=== PATIENT | male | born 1935 | race Caucasian/White ===

== ENCOUNTER 2023-07-26 07:37 | Emergency (ER) | payer OTHER, SELFPAY ==
[2023-07-26 07:51] VITALS: BP 155/81
[2023-07-26 08:27] VITALS: BP 148/68
--- NOTE | 2023-07-26 08:28 | ED.GENMED ---
History of Present Illness
General
Chief Complaint: Rectal Bleeding
Time Seen by Provider: 07/26/23 08:00
Travel History
Have you had any contact with someone who has COVID-19?: No
Do you have any symptoms of coronavirus? Fever > 100 degrees, chills, cough, shortness of breath, sore throat, loss of taste or smell, muscle aches, or headache?: No
History of Present Illness
History of Present Illness:
79-year-old male with history of A-fib on Eliquis, peripheral arterial disease on Plavix, hypertension, hyperlipidemia, and CHF presents to the emergency department for evaluation of blood on the toilet paper today. He denies seeing any blood in
the bowl. He states that he felt somewhat lightheaded this morning as well prompting, the ER. He did take his morning medications including Eliquis and Plavix. Denies any abdominal pain, chest pain, shortness of breath
Past History
Past History
ED Past Medical History: Arrthythmia (Afib), CHF, HTN, Hypercholesterolemia, Hypothyroidism and Other (Partial SBO, Ulcers)
ED Past Surgical History: Other (hernia)
Patient has exhibited threatening behavior?: No
PSI?: No
Social History
Tobacco: Former smoker
Alcohol: None
Drug: None
Personal:
Living: alone
Employment: Retired
Family History
Family History: Other (Noncontributory)
Review of Systems
Review of Systems
Allergies reviewed?: Yes
All Other Systems: ROS reviewed and negative except as documented in HPI and ROS
Phy Exam
Physical Exam
Physical Exam:
GEN: Well appearing, NAD, WDWN
Eyes: PERRLA, EOMs intact, no scleral icterus
HENT: NCAT, oral mucosa moist
Lungs: CTAB, no wheezes, rales, rhonchi, normal chest wall excursion
Cardiac: RRR, no M/R/G, no peripheral edema. Radial pulses 2+ bilat
Abdomen: S, NT, ND, NABS, no masses or hepatosplenomegaly
Rectal: No blood in the rectal vault, no anal fissures visualized, no active bleeding
Neuro: AO x 3
MSK: No gross deformity or ecchymosis.
Skin: No rashes, petechiae. Normal color, no pallor or jaundice.
Psych: Calm, cooperative, proper hygiene
Course
Orders/Labs/Results
Orders:
Orders
07/26/23 09:20
Comprehensive Metabolic Panel Urgent
07/26/23 09:26
Type+Screen Urgent
Complete Blood Count/With Diff Urgent
Abnormal Lab Results
07/26/23 07/26/23
09:20 09:26
RDW 20.1 H %
(11.5-14.5)
Absolute Monos (auto) 0.7 H 10^3/uL
(0.1-0.6)
Monocytes % 10.1 H %
(1.7-9.3)
Eosinophils % 7.9 H %
(0-6)
BUN 26 H mg/dl
(9-20)
Total Protein 9.0 H g/dl
(6.3-8.2)
Albumin 5.2 H g/dl
(3.5-5.0)
07/26/23 09:26
07/26/23 09:26
Vital Signs
Initial and Last Documented VS:
Initial Vital Signs
Temp Pulse Resp BP Pulse Ox
93.9 F L 55 20 155/81 97
07/26/23 07:51 07/26/23 07:51 07/26/23 07:51 07/26/23 07:51 07/26/23 07:51
Last Documented Vital Signs
Temp Pulse Resp BP Pulse Ox
97.7 F 56 16 158/87 96
07/26/23 11:39 07/26/23 12:00 07/26/23 12:00 07/26/23 12:00 07/26/23 11:30
MDM/Problems Addressed
MDM/Problems Addressed:
Patient's hemoglobin is normal at 16. He was observed the emergency department for approximate 4 hours at which point he had no further episodes of blood per rectum. His vital signs remained stable. Initial temperature improved dramatically with
external warming. I discussed the case with on-call for vascular surgery who agreed that Plavix should be continued despite the mild rectal bleeding given his significant peripheral arterial disease. However Eliquis will be held for 72 hours.
Patient does reside at home alone however has visiting nurses as well as family that visits him every day and sets up his medications for him. I did discuss the details of treatment with his daughter who is in agreement with the plan. Patient is
advised to return with any increased rectal bleeding. Do not see any indication at this juncture for imaging as he has no reproducible abdominal tenderness and volume of bleeding appears to be quite minor, doubt there will be any utility to CT
angiogram. I suspect the source of bleeding is most likely internal hemorrhoids, less likely diverticular bleeding given that it was not maroon and given that there was no recurrence of bleeding in the ER. Highly doubt AVM or significant vascular
bleed again given patient's stability.
*Critical Care Note
Total Time (30-74mins, 75-104mins- exclusive of procedures): Not Applicable
ED Attending Note
-
Portions of this chart may have been created with voice recognition software.� Occasional wrong word or��sound alike� substitutions may have occurred due to the inherent limitations of voice recognition software.
Discharge Plan
Departure
Patient Disposition: Home (Routine Discharge)
Date of Disposition: 07/26/23
Time of Disposition: 12:03
Patient with high blood pressure during this ER visit?: No
Discharge Problem:
Rectal bleed
Instructions: Hemorrhoids (DC)
Prescriptions:
No Action
levothyroxine 100 MCG tablet
100 mcg PO DAILY
ascorbic acid (vitamin C) [Vitamin C] 500 MG tablet
500 mg PO DAILY
multivitamin with folic acid [Tab-A-Ray] 1 TABLET tablet
1 tab PO DAILY
lisinopril 5 MG tablet
5 mg PO DAILY Qty: 90 3RF
pantoprazole 40 MG tablet,delayed release (DR/EC)
40 mg PO Q48H
cholecalciferol (vitamin D3) [Vitamin D3] 25 mcg (1,000 unit) Tablet
25 mcg PO DAILY
bumetanide 1 mg Tablet
1 mg PO DAILY Qty: 30 0RF
apixaban 5 mg Tablet
5 mg PO BID Qty: 0 0RF
atorvastatin 10 mg Tablet
10 mg PO QPM Qty: 90 0RF
clopidogrel 75 mg Tablet
75 mg PO DAILY Qty: 60 0RF
Referrals:
Dipti Travis DO [Family Provider] -
Activity Restrictions/Additional Instructions:
Do not take Eliquis for the next 3 days/6 doses, you may resume this on Friday evening
Continue your Plavix
If your bleeding worsens return to the emergency department for reevaluation
Interventions
Interventions:
*Risk Screen - Suicide Last Done: 07/26/23 09:46
*General Assessment Last Done: 07/26/23 09:46
*Neglect/Abuse Screening Last Done: 07/26/23 09:46
ED- Fall Risk Assessment Last Done: 07/26/23 09:01
*ED COVID-19 Vaccine History Last Done: 07/26/23 09:01
*Nursing Disposition Last Done: 07/26/23 12:22
FC-Hrklkg-Hxuxakqnxt Assessment Last Done: 07/26/23 09:01
ED- Cardiac Assessment Last Done: 07/26/23 09:01
ED- Pulmonary Assessment Last Done: 07/26/23 09:01
Discharge Date and Time
Discharge Date/Time: 07/26/23 12:40
[2023-07-26 09:00] VITALS: BP 138/64
[2023-07-26 09:47] VITALS: BMI 23.3
[2023-07-26 09:48] LABS: % Basophils 1.6 % (0-2); % Eosinophils 7.9 % (0-6); % Immature Granulocytes 0.3 % (0-0.5); % Lymphocytes 23.7 % (20.5-51.1); % Monocytes 10.1 % (1.7-9.3); % Neutrophils 56.4 % (42.2-75.2); Absolute Basophils 0.1 10^3/uL (0-0.2); Absolute Eosinophils 0.5 10^3/uL (0-0.7); Absolute Lymphocytes 1.6 10^3/uL (1.2-3.4); Absolute Monocytes 0.7 10^3/uL (0.1-0.6); Absolute Neutrophils 3.8 10^3/uL (1.4-6.5); Hematocrit 46.7 % (39.0-52.0); Mean Corp Hgb Conc. 34.3 g/dL (33.0-37.0); Mean Corpuscular Hgb 28.2 pg (27.0-31.0); Mean Corpuscular Volume 82.4 fL (80.0-94.0); Mean Platelet Volume 10.2 fL (7.4-10.4); Nucleated Red Blood Cells % 0 % (-); Platelet Count 251 10^3/uL (130-400); Red Blood Cell Count 5.67 10^6/uL (4.70-6.10); Red Cell Dist. Width 20.1 % (11.5-14.5); White Blood Cell Count 6.7 10^3/uL (4.8-10.8)
[2023-07-26 10:00] VITALS: BP 151/73
[2023-07-26 11:00] VITALS: BP 139/72
[2023-07-26 11:17] LABS: ALT (SGPT) 37 U/L (0-50); AST (SGOT) 42 U/L (17-59); Albumin 5.2 g/dl (3.5-5.0); Alkaline Phosphatase 103 U/L (38-126); Blood Urea Nitrogen 26 mg/dl (9-20); Calcium 9.7 mg/dl (8.4-10.2); Carbon Dioxide 28 mmol/L (22-30); Chloride 99 mmol/L (98-107); Estimated Creatinine Clearance 49 ml/min; Glucose 84 mg/dl (70-99); Potassium 4.4 mmol/L (3.5-5.1); Sodium 138 mmol/L (135-145); eGFR > 60.00
[2023-07-26 12:00] VITALS: BP 158/87
== END 2023-07-26 12:40 | disposition home or self-care (01) ==
LOC: EMR 07:37
PROVIDERS: Physician Assistant; EMERGENCY PHYSICIAN Emergency Medicine; FAMILY PHYSICIAN Student in an Organized Health Care Education/Training Program
DX: K62.5 Hemorrhage of anus and rectum (principal); I48.91 Unspecified atrial fibrillation; I73.9 Peripheral vascular disease, unspecified; E78.00 Pure hypercholesterolemia, unspecified; I11.0 Hypertensive heart disease with heart failure; I50.9 Heart failure, unspecified; E03.9 Hypothyroidism, unspecified; Z79.01 Long term (current) use of anticoagulants; Z79.02 Long term (current) use of antithrombotics/antiplatelets; Z87.891 Personal history of nicotine dependence
CPT/HCPCS: 99283; 80053; 85025; 86850; 86900; 86901

== ENCOUNTER → 2023-09-04 13:17 | Outpatient (REF) | payer OTHER, SELFPAY | LOC: WOUND 13:17 | PROVIDERS: ATTENDING PHYSICIAN Surgery; FAMILY PHYSICIAN Student in an Organized Health Care Education/Training Program | DX: I87.312 Chronic venous hypertension (idiopathic) with ulcer of left lower extremity (principal); L97.422 Non-pressure chronic ulcer of left heel and midfoot with fat layer exposed; I50.32 Chronic diastolic (congestive) heart failure; D68.69 Other thrombophilia; N18.31 Chronic kidney disease, stage 3a; E11.65 Type 2 diabetes mellitus with hyperglycemia; I73.9 Peripheral vascular disease, unspecified; D50.9 Iron deficiency anemia, unspecified; E11.42 Type 2 diabetes mellitus with diabetic polyneuropathy; E11.22 Type 2 diabetes mellitus with diabetic chronic kidney disease; I13.0 Hypertensive heart and chronic kidney disease with heart failure and stage 1 through stage 4 chronic kidney disease, or unspecified chronic kidney disease | CPT/HCPCS: 99213 ==

== ENCOUNTER → 2023-12-02 12:45 | Outpatient (REF) | payer OTHER, SELFPAY | LOC: HWEVLT 12:45 | PROVIDERS: ATTENDING PHYSICIAN Radiology Vascular & Interventional Radiology | DX: I83.892 Varicose veins of left lower extremity with other complications (principal) | CPT/HCPCS: 93971 ==

== ENCOUNTER → 2023-12-05 14:37 | Outpatient (REF) | payer OTHER, SELFPAY | LOC: WOUND 14:37 | PROVIDERS: ATTENDING PHYSICIAN Surgery; FAMILY PHYSICIAN Student in an Organized Health Care Education/Training Program | DX: L97.322 Non-pressure chronic ulcer of left ankle with fat layer exposed (principal); I87.312 Chronic venous hypertension (idiopathic) with ulcer of left lower extremity; I87.2 Venous insufficiency (chronic) (peripheral); I73.9 Peripheral vascular disease, unspecified; I83.893 Varicose veins of bilateral lower extremities with other complications | CPT/HCPCS: 11042; 99213 ==

== ENCOUNTER → 2023-12-11 14:07 | Outpatient (REF) | payer OTHER, SELFPAY | LOC: WOUND 14:07 | PROVIDERS: ATTENDING PHYSICIAN Surgery; FAMILY PHYSICIAN Student in an Organized Health Care Education/Training Program | DX: I87.312 Chronic venous hypertension (idiopathic) with ulcer of left lower extremity (principal); L97.322 Non-pressure chronic ulcer of left ankle with fat layer exposed; I87.2 Venous insufficiency (chronic) (peripheral); I73.9 Peripheral vascular disease, unspecified | CPT/HCPCS: 99213 ==

== ENCOUNTER → 2024-01-28 10:51 | Outpatient (REF) | payer OTHER, SELFPAY | LOC: HWEVLT 10:51 | PROVIDERS: ATTENDING PHYSICIAN Radiology Diagnostic Radiology | DX: I83.892 Varicose veins of left lower extremity with other complications (principal) | CPT/HCPCS: 36471 ==

== ENCOUNTER → 2024-02-10 13:25 | Outpatient (REF) | payer OTHER, SELFPAY | LOC: WOUND 13:25 | PROVIDERS: ATTENDING PHYSICIAN Surgery; FAMILY PHYSICIAN Family Medicine | DX: I87.312 Chronic venous hypertension (idiopathic) with ulcer of left lower extremity (principal); L97.322 Non-pressure chronic ulcer of left ankle with fat layer exposed; I87.2 Venous insufficiency (chronic) (peripheral); I73.9 Peripheral vascular disease, unspecified | CPT/HCPCS: 99213 ==